=== PATIENT | male | born 1945 | race Hispanic/Latino ===

== ENCOUNTER 2017-05-23 22:13 | Observation (INO) | payer MEDICARE, OTHER ==
[2017-05-23] MEDS ORDERED: NARCAN 0.4 MG/1 ML ONE (22:15)
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
[2017-05-23] MEDS ORDERED: ZOFRAN IV ONE (23:06)
[2017-05-23 23:16] LABS: Basophils # (Auto) 0.1 K/mm3 (0.0-0.1); Basophils % (Auto) 1.2 % (0.0-1.8); Eosinophils # (Auto) 0.3 K/mm3 (0.0-0.4); Eosinophils % (Auto) 3.3 % (0.0-4.3); Hematocrit 45.5 % (35.5-45.6); Hemoglobin 15.1 gm/dl (11.8-15.2); Lymphocytes # (Auto) 1.4 K/mm3 (1.2-5.4); Lymphocytes % (Auto) 17.2 % (13.4-35.0); Mean Corpuscular HGB Conc 33 % (32-34); Mean Corpuscular Hemoglobin 31 pg (28-32); Mean Corpuscular Volume 92 fl (84-94); Monocytes # (Auto) 0.7 K/mm3 (0.0-0.8); Monocytes % (Auto) 8.5 % (0.0-7.3); Platelet Count 147 K/mm3 (140-440); Red Blood Count 4.94 M/mm3 (3.65-5.03); Red Cell Distribution Width 14.8 % (13.2-15.2)
[2017-05-23 23:34] LABS: Alanine Aminotransferase 7 units/L (7-56); BUN/Creatinine Ratio 9; Blood Urea Nitrogen 6 mg/dL (9-20); Calcium 8.9 mg/dL (8.4-10.2); Hemolysis Index 0
[2017-05-23] MEDS ORDERED: NACL ONE (23:44)
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
[2017-05-24 00:26] LABS: Creatine Kinase MB 5.2 ng/mL (0.0-4.0)
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
[2017-05-24] MEDS ORDERED: ASPIRIN PO ONE (01:54)
[2017-05-24 02:19] LABS: Bilirubin,Urine NEG (Negative); Blood,Urine MOD (Negative); Color,Urine Straw (Yellow); Protein,Urine <15 mg/dL mg/dL (Negative)
[2017-05-24 02:24] LABS: Amphetamine Screen,Urine PRESUMPTIVE NEGATIVE; Cannabinoid Screen,Urine PRESUMPTIVE NEGATIVE; Cocaine Screen,Urine PRESUMPTIVE NEGATIVE; Methadone Screen,Urine PRESUMPTIVE NEGATIVE; Opiate Screen,Urine PRESUMPTIVE NEGATIVE
[2017-05-24 02:48] LABS: Benzodiazepines Screen,Urine PRESUMPTIVE POSITIVE
[2017-05-24] MEDS ORDERED: DULCOLAX PR PRN (03:12)
[2017-05-24] MEDS ORDERED: ZOFRAN IV PRN (03:12)
[2017-05-24] MEDS ORDERED: TYLENOL PO PRN (03:13)
[2017-05-24] MEDS ORDERED: DUONEB *Not for PRN Use IH (03:13)
[2017-05-24] MEDS ORDERED: PROVENTIL IH PRN (03:30)
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
[2017-05-24] MEDS ORDERED: D5/0.45NS 1,000 ML IV SCH (04:00)
[2017-05-24] MEDS: HEPARIN SUB-Q SCH ×2 (06:15→13:04)
[2017-05-24 09:17] VITALS: BP 165/87
--- NOTE | 2017-05-24 12:32 | Magnetic Resonance Report ---
MRI scan of brain: History: Unresponsive. Technique: Multiplanar, multisequence images were obtained without contrast injection. Findings: No evidence of restricted diffusion. Motion artifacts noted confined to the frontal region. There is chronic lacunar infarct right basal ganglia. Periventricular areas of hyperintensity without restricted diffusion. No extra-axial fluid collection. Normal brainstem and cerebellum. Normal sinuses and mastoid air cells. Impression: No acute intracranial abnormality. Chronic lacunar infarct right basal ganglia. Small vessel ischemic changes.
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
--- NOTE | 2017-05-24 13:39 | Consultation ---
History of Present Illness Consult date: 05/24/17 History of present illness: OK to discharge the patient he is stable gave rec's re stroke risk factor reduction in the future he should nopt take xanax or like drugs in the future see my dictated note can go home follow up in the office Past History Past Medical History: CAD (hx of stent placement), cancer (prostate), hypertension, other (chronic LBA) Past Surgical History: PTCA, Other (back surgery) Social history: smoking Family history: other (unknown) Medications and Allergies Allergies Allergy/AdvReac Type Severity Reaction Status Date / Time Penicillins Allergy Unknown Verified 05/23/17 22:28 Home Medications Medication Instructions Recorded Confirmed Last Taken Type Unobtainable 05/24/17 05/24/17 Unknown History Active Meds: Active Medications Acetaminophen (Tylenol) 650 mg PO Q4H PRN PRN Reason: Pain MILD(1-3)/Fever >100.5/DOLAN Albuterol (Proventil) 2.5 mg IH Q4HRT PRN PRN Reason: Shortness Of Breath Bisacodyl (Dulcolax) 10 mg [place] QDAY PRN PRN Reason: Constipation unrelieved by [facility] Heparin Sodium (Porcine) (Heparin) 5,000 unit SUB-Q Q8H TRE Last Admin: 05/24/17 13:04 Dose: Not Given Dextrose/Sodium Chloride (D5/0.45ns) 1,000 mls @ 75 mls/hr IV DIRECT TRE Last Admin: 05/24/17 06:19 Dose: 75 mls/hr Ondansetron HCl (Zofran) 4 mg IV Q8H PRN PRN Reason: N/V unrelieved by Reglan Physical Examination - Vital Signs Vital Signs: Vital Signs Temp Pulse Resp BP Pulse Ox 97.6 F 78 20 141/102 99 05/23/17 22:29 05/23/17 22:29 05/23/17 22:29 05/23/17 22:29 05/23/17 22:29 Results - Laboratory Findings CBC and BMP: 05/23/17 22:55 05/23/17 22:55 Abnormal Lab Findings: Abnormal Labs 05/23/17 05/23/17 05/23/17 22:55 22:55 22:55 [place] % (Auto) 8.5 H BUN 6 L Creatinine 0.7 L CK-MB (CK-2) Urine pH Salicylates < 0.3 L 05/24/17 05/24/17 00:01 02:04 [place] % (Auto) BUN Creatinine CK-MB (CK-2) 5.2 H Urine pH 8.0 H Salicylates
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
== END 2017-05-24 14:41 | disposition home or self-care (01) ==
LOC: ED 22:13 → INTOOBSV 05-24 03:13 → 4A 05-24 03:13
PROVIDERS: ADMIT Internal Medicine; ATTEND Internal Medicine
DX: R41.82 Altered mental status, unspecified (principal); I25.10 Atherosclerotic heart disease of native coronary artery without angina pectoris; I10 Essential (primary) hypertension; M54.5 Low back pain; G89.29 Other chronic pain; Z95.5 Presence of coronary angioplasty implant and graft; Z85.46 Personal history of malignant neoplasm of prostate; F17.200 Nicotine dependence, unspecified, uncomplicated; Z86.73 Personal history of transient ischemic attack (TIA), and cerebral infarction without residual deficits
CPT/HCPCS: 36415; 70450; 70551; 71045; 72125; 74177; 80053; 80307; 81001; 82140; 82550; 82553; 82962; 84443; 84484; 85025; 93005; 93010; 96361; 96372; 96374; 99285; G0378; G0480; J1644; J2310; J2405; Q9967; 80320; 96360